=== PATIENT | female | born 1945 | race Caucasian/White ===

== ENCOUNTER 2016-12-27 08:26 | Day surgery (SDC) | payer MEDICARE ==
[~2016-12-27 08:26] MED LIST: RINGERS SOLUTION,LACTATED 1,000 ML IV PRN
--- OUTSIDE RECORDS SUMMARY | 2016-12-27 08:30 | XMS REPORT | Continuity of Care Document ---
:1945 Author Organization [facility] ([facility]) Address [place] [address] Phone [phone] Care Team Providers Name Role Phone Ale Drake Deniz Primary Care Provider [phone] Source Comments This disclosure is being made pursuant to the Care Everywhere program, applicable federal and state laws, and may not contain all informaitonavailable regarding this patient.[facility] ([facility]) Active Allergies and Adverse Reactions No Known Allergies Current Medications Prescription Sig. Disp. Refills Start Date End Date Status simvastatin (ZOCOR) 40 mg Take 40 mg by mouth Active tablet at bedtime. Once daily ESOMEPRAZOLE MAG Take 40 mg by mouth Active TRIHYDRATE (NEXIUM PO) daily. Once in morning MULTIVITS W-FE,OTHER MIN Take by mouth. Active (CENTRUM PO) Once daily Active Problems Problem Noted Date Multinodular goiter (nontoxic) 02/02/2010 Social History Tobacco Use Types Packs/Day Years Used Date Never Assessed Last Filed Vital Signs Vital Sign Reading Time Taken Blood Pressure 133/75 01/25/2011 12:56 PM CDT Pulse 69 01/25/2011 12:56 PM CDT Temperature 35.9 C (96.6 F) 01/25/2011 12:56 PM CDT Respiratory Rate - - Height 1.58 m (5' 2.21") 01/25/2011 12:56 PM CDT Weight 79.9 kg (176 lb 2.4 oz) 01/25/2011 12:56 PM CDT Body Mass Index 32.01 01/25/2011 12:56 PM CDT Oxygen Saturation - - Plan of Care Health Maintenance Due Date Last Done Comments Hepatitis B Vaccine (1 of 3 - Primary Series) 1945 Tdap Vaccine 02/21/1955 Lipid Disorder Screening 02/21/1962 Td Vaccine 02/21/1962 Mammogram 1984 Colonoscopy 02/21/1994 Zoster Vaccine 2004 Osteoporosis Screening (DXA Bone Density) 02/21/2009 Pneumococcal Vaccine (1 of 2 - PCV13) 02/21/2009 Influenza Vaccine: Seasonal (#1) 05/15/2016 Results from Last 3 Months Not on file
[2016-12-27] MEDS ORDERED: RINGERS SOLUTION,LACTATED 1,000 ML IV ONE (09:05)
[2016-12-27 10:37] VITALS: BP 126/59
--- NOTE | 2016-12-27 12:52 | OR ---
Operative Report - Dictated Report Narrative: OPERATIVE REPORT DATE OF OPERATION: 12/27/2016 PREOPERATIVE DIAGNOSIS: No recent dedicated colon studies. POSTOPERATIVE DIAGNOSIS: Diverticulosis OPERATION: Colonoscopy SURGEON: Rodger Bergman MD ANESTHESIA: LISET Irizarry CRNA INDICATIONS FOR PROCEDURE: The patient is a 71-year-old female referred by Dr. Tirado. Her last colonoscopy was in 2005. There is no family history of colon cancer. The patient is currently asymptomatic. FINDINGS: Mild diverticulosis otherwise normal colonoscopy to the cecum NARRATIVE OF PROCEDURE: The patient was identified in the holding area, and prior to the administration of anesthetic, a multidisciplinary timeout was observed. With the patient in the left lateral position and after the administration of intravenous sedation, the perineum was inspected. There was no evidence of pilonidal disease or skin breakdown. The external appearance of the anus was normal. Sphincter tone was good. The flexible fiberoptic colonoscope was inserted into the rectum which was insufflated with air. The rectal mucosa and submucosal vascular pattern appeared normal, the prep was seen to be complete. The scope was advanced through the sigmoid colon, which contained several not impacted noninflamed diverticular openings. The scope was advanced up the descending colon, and around the splenic flexure where the triangular haustral architecture of the transverse colon was seen. The scope was advanced across the transverse colon, around the hepatic flexure to the cecum, where the confluence of tenia and the ileocecal valve were identified. The mucosa at this level appeared normal. The scope was then slowly withdrawn in a circular fashion so that all aspects of colonic mucosa were inspected. The colon was normal in course and caliber. The haustral architecture appeared well preserved throughout with no evidence of external compression. The mucosa and submucosal vascular pattern appeared normal, specifically there was no gross evidence to suggest colitis or inflammatory bowel disease and no AV malformations were seen. The diverticulosis was mild in degree and confined primarily to the sigmoid colon. No polyps were encountered. The scope was gradually withdrawn to the level of the rectum. As much insufflated air as possible was removed. The scope was withdrawn from the patient and the procedure terminated. The patient tolerated the anesthetic and procedure well without complication and was transferred back to the ambulatory surgery area awake and in stable condition. The patient remained stable throughout a period of postoperative observation. She denied abdominal discomfort, was able to tolerate by mouth intake, and was up without assistance. I shared the operative findings with the patient and she was given copies of the photographs which appear in the medical record. She was discharged home with instructions not to engage in hazardous activity today , but may resume normal activity tomorrow, and advance diet as tolerated. She is to continue those medications as listed in the history and physical exam. RECOMMENDATION: Colon surveillance in 10 years depending upon findings or symptoms Reviewed and electronically signed
== END 2016-12-27 08:27 | disposition home or self-care (01) ==
LOC: AMB 08:26
PROVIDERS: ATTEND Surgery
PROC: 0DJD8ZZ Inspection of Lower Intestinal Tract, Via Natural or Artificial Opening Endoscopic (ICD-10-PCS; principal; 2016-12-27 09:25)
DX: Z12.11 Encounter for screening for malignant neoplasm of colon (principal); K57.30 Diverticulosis of large intestine without perforation or abscess without bleeding; E78.5 Hyperlipidemia, unspecified; K21.9 Gastro-esophageal reflux disease without esophagitis; Z68.32 Body mass index [BMI] 32.0-32.9, adult

== ENCOUNTER 2020-09-01 08:12 | Inpatient (IN) ==
[2020-09-01] MEDS ORDERED: ONDANSETRON HCL/PF 2 MG/ML VIAL IV ONE (08:47)
[2020-09-01] MEDS ORDERED: NORMAL SALINE 1,000 ML IV PRN ×2 (08:47→11:00)
[2020-09-01 09:10] LABS: Hematocrit 25.5 % (37.0-47.0); Hemoglobin 8.5 gm/dL (12.5-16.0); Mean Cell Volume 88.5 fl (78-100); Mean Corpuscular Hemoglobin 29.5 pg (27-31); Mean Corpuscular Hgb Conc 33.3 g/dl (32-36); Mean Platelet Volume 9.5 fl (8-12.5); NRBC# 0.1 k/mm3 (0-1); Neutrophil # 18.3 K/mm3 (1.3-6.0); Neutrophil % 90.2 % (42-75.0); Red Blood Count 2.88 M/mm3 (4.2-5.4); Red Cell Distribution Width 19.4 % (11.5-14.0); White Blood Count 20.3 K/mm3 (4.0-10.5)
[2020-09-01 09:19] LABS: Platelet Count 58 K/mm3 (150-450)
[2020-09-01 09:25] LABS: Albumin * 1.9 gm/dl (3.4-5.0); Anion Gap 14.9 mmol/L (6.8-13.8); Bilirubin, Total 1.3 mg/dL (0.0-1.1); CRP 8.5 mg/dL (0.0-0.9); Ca. Corrected For Albumin 9.5 mg/dL (8.4-10.2); Calcium * 8.1 mg/dL (7.9-10.9); Carbon Dioxide 24.4 mmol/L (24-32.6); Potassium 3.3 mmol/L (3.4-4.6); Total Protein 4.8 gm/dL (6.2-8.2)
[2020-09-01] MEDS ORDERED: cefTRIAXone SODIUM 1,000 MG/100 ML BAG IV ONE (10:05)
[2020-09-01 10:35] LABS: Urine Appearance Clear (CLEAR); Urine Bacteria 1+; Urine Bilirubin Negative (NEGATIVE); Urine Blood Negative /ul (NEGATIVE); Urine Color Yellow; Urine Ketone Negative (NEGATIVE); Urine Nitrite Negative (NEGATIVE); Urine Protein Negative (NEGATIVE); Urine RBC None Seen /hpf (0-5); Urine Urobilinogen Normal (NORMAL); Urine WBC None Seen /hpf (0-5)
--- NOTE | 2020-09-01 12:38 | ERNOTE ---
Medical Problem HPI - Narrative Date of Service: 09/01/20 - General Chief Complaint: General Assessment Time Seen by Provider: 09/01/20 08:30 Source: patient, family Exam Limitations: no limitations - Immun/Allergies/Home Medications Immunizations: IMMUNIZATION HX Immunizations Up to Date Yes History of Influenza Vaccine No Hx Pneumococcal Vaccination Yes Allergies/Adverse Reactions: Allergies simvastatin Adverse Reaction (Mild, Verified 02/24/19 13:54) MUSCLE ACHES Home Medications: HOME MEDICATIONS Multivitamins [Multivitamin Steven] 1 cap PO DAILY 12/18/16 [Last Taken Unknown] Vit C/E/Zn/Coppr/Lutein/Zeaxan [Preservision Areds 2 Softgel] 1 ea PO BID 12/18/16 [Last Taken Unknown] gtkkul-nmqpidys-azmjjrr 24,000-76,000-120,000 unit capsule,delayed rel 1 tab PO ACHS 30 Days #150 cap 08/13/18 [Last Taken Unknown] metoclopramide HCl 5 mg tablet 5 mg PO TID 30 Days #90 tab 08/13/18 [Last Taken Unknown] Ondansetron HCl [Zofran] 1 - 2 tab PO Q8H PRN #10 tab 03/12/19 [Last Taken Unknown] [place] Stairlift 0 .ROUTE .MEDSUPPLY #1 ea 10/13/19 [Last Taken Unknown] Apixaban [Eliquis] 5 mg PO DAILY 09/01/20 [Last Taken Unknown] Furosemide [Lasix] 40 mg PO DAILY 09/01/20 [Last Taken Unknown] Rivaroxaban [Xarelto] 10 mg PO DAILY 09/01/20 [Last Taken Unknown] - History of Present History Narrative: patient returns to ed with weakness and fall hit back of head no loc, 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, had refused admission previously Timing: constant Severity: moderate Modifying Factors - (Improves): Present: other - nothing Modifying Factors - (Worsens): Present: other - nothing Review of Systems - Review of Systems Constitutional: Present: See HPI, weakness, fatigue, malaise EYE: Present: no symptoms reported ENT: Present: no symptoms reported Respiratory: Present: no symptoms reported Cardiology: Present: no symptoms reported Gastrointestinal/Abdominal: Present: nausea Genitourinary: Present: no symptoms reported Musculoskeletal: Present: no symptoms reported Skin: Present: no symptoms reported Neurological: Present: no symptoms reported Endocrine: Present: no symptoms reported Hematologic/Lymphatic: Present: no symptoms reported Medical History (Last Reviewed 09/01/20 @ 08:20 by Carlota Celestin RN) History of chemotherapy (Acute) Onset Date: 07/12/18 Chemotherapy: gemcitabine/abraxane 07/12/2018 - 08/26/2018 Pancreatic cancer (Acute) Onset Date: 06/05/18 Stage: [id number], stage III at diagnosis Osteopenia (Chronic) Onset Date: Unknown Hyperlipidemia (Chronic) Onset Date: Unknown Gastroesophageal reflux (Chronic) Onset Date: Unknown Actinic keratoses (Acute) Onset Date: Unknown Ascites Onset Date: 04/28/19 Goiter Onset Date: Unknown History of CT scan Onset Date: 09/09/18 History of chemoradiation Onset Date: 09/24/18 09/24/2018 - 11/06/2018. Knee pain, left Onset Date: Unknown Rosacea Onset Date: Unknown Thyroid nodule Onset Date: [address] scan Onset Date: 06/14/18 [facility]. CT chest abdomen pelvis. 1. stable ill-defined mass in the inferior pancreatic head/uncinate process, consistent with biopsy-proven adenocarcinoma. The mass abuts and may invade the proximal third portion of duodenum, abuts and focally narrows the distal SMV, and focally abuts the mid SMA without narrowing. 2. Interval resolution of intrahepatic and extrahepatic bile duct dilation with interval biliary stenting. 3. Nonspecific portacaval and periceliac lymph nodes, stable. 4. stable moderate sized hiatal hernia. 5. no liver metastases. Hospital admission Onset Date: 01/20/19 Admitted to [facility] on 01/20/2019; post-operative wound management, pain control. Discharged home on 01/27/2019. Medicare annual wellness visit, initial Onset Date: Unknown Surgical History: Surgical History (Last Reviewed 09/01/20 @ 08:20 by Carlota Celestin RN) History of ERCP Onset Date: 03/21/19 Dr. Bob Marie, [facility]. Enteroscopy, endoscopy, choledochoscopy, and bile duct stone extraction. History of abdominal paracentesis Onset Date: 04/28/19 History of back surgery Onset Date: ~1985 History of biopsy Onset Date: 06/05/18 [facility]. History of colonoscopy Onset Date: 12/27/16 History of endoscopic retrograde cholangiopancreatography Onset Date: 10/21/18 Dr. Bob Marie, [facility]. History of whipple procedure Onset Date: 01/20/19 Family History: Family History (Last Reviewed 09/01/20 @ 08:20 by Carlota Celestin RN) Brother Kidney malignancy Father Heart disease Mother Heart disease CHF (congestive heart failure) Sister at Social History: (Last Reviewed 09/01/20 @ 08:20 by Carlota Celestin RN) Social History: detention: No Marital status: / household members: significant other current occupational status: retired Service: No Tobacco: Smoking Status: Never smoker Alcohol: alcohol intake: never Substance Use: substance use type: does not use Dietary Habits: caffeine: Yes Type: coffee Exercise: frequency: daily Physical Exam - Physical Exam General Appearance: Present: mild distress, anxious Head Exam: Present: tenderness, other - contusion to occipital region Eye Exam: Normal inspection: bilateral, PERRL: bilateral, EOMI: bilateral Ears, Nose, Throat: Present: dry mucous membranes Neck: Present: normal inspection, nontender Respiratory: Present: no respiratory distress, normal breath sounds, no accessor y muscle use, chest nontender, lungs clear Cardiovascular/Chest: Present: regular rate, rhythm, no murmur, normal peripheral pulses Gastrointestinal/Abdominal: Present: normal bowel sounds, nontender, nondistended, soft, no organomegaly Back Exam: Present: normal inspection, normal range of motion, no CVA tenderness, no vertebral tenderness Extremity Exam: Present: normal inspection, non-tender, normal range of motion, no edema Neurological Exam: Present: alert, oriented, normal mood/affect, no motor/sensory deficits Skin Exam: Present: normal color, warm/dry Lymphatic Exam: Present: no adenopathy Progress - Date and Time Seen: Date and Time: 09/01/20 12:35 patient improved, case discussed with dr tirado acceoted for adsmission - Results and Orders Patient's Lab Results:: I have reviewed the patient's lab results. - Vital Signs Patient's Vital Signs:: I have reviewed the patient's vital signs. Vital Signs: Vital Signs 09/01/20 08:12 09/01/20 08:20 09/01/20 10:30 Temperature 35.8 C L 35.8 C L Pulse Rate 113 H 113 H 97 Respiratory Rate 24 H 24 H 22 H Blood Pressure 92/37 92/37 107/48 O2 Sat by Pulse Oximetry 100 100 100 09/01/20 10:45 09/01/20 10:46 Temperature Pulse Rate 99 100 Respiratory Rate 22 H Blood Pressure 108/50 O2 Sat by Pulse Oximetry 100 - X-Ray X-Ray #1 X-Ray: chest Interpretation: Discd w/ radiologist - mild left pleural effusion - CT/Ultrasound CT/Ultrasound Narrative: ct head no acte intracrainal process - Progress/Reassessment Chief Complaint: General Assessment Progress:: Improved - Transfer of Care Expected Disposition: Admit Plan - Plan Plan: to admit to hospital Departure Clinical Impression: Dehydration, Pancreatic cancer, Sepsis - Departure Disposition: Short Term Hospital Inpatient Condition: Serious Referrals: Andrezj Tirado DO [Primary Care Provider] -
[2020-09-01] MEDS: NORMAL SALINE 1,000 ML IV PRN ×2 (12:50→18:46)
[2020-09-01] MEDS ORDERED: NORMAL SALINE 1,000 ML IV ONE (17:34)
[2020-09-02] MEDS: NORMAL SALINE 1,000 ML IV PRN ×3 (02:50→19:30)
[2020-09-02 06:15] LABS: Mean Cell Volume 91.2 fl (78-100); Mean Corpuscular Hemoglobin 30.3 pg (27-31); Mean Corpuscular Hgb Conc 33.2 g/dl (32-36); Mean Platelet Volume 10.7 fl (8-12.5); NRBC# 0.1 k/mm3 (0-1); Neutrophil # 13.7 K/mm3 (1.3-6.0); Neutrophil % 86.7 % (42-75.0); Platelet Count 52 K/mm3 (150-450); Red Blood Count 2.51 M/mm3 (4.2-5.4); Red Cell Distribution Width 20.8 % (11.5-14.0); White Blood Count 15.8 K/mm3 (4.0-10.5)
[2020-09-02 06:21] LABS: Hematocrit 22.9 % (37.0-47.0); Hemoglobin 7.6 gm/dL (12.5-16.0)
[2020-09-02 06:27] LABS: Albumin * 1.6 gm/dl (3.4-5.0); Anion Gap 11.6 mmol/L (6.8-13.8); BUN/Creatinine Ratio 50.8 (9.0-21.6); Bilirubin, Total 1.1 mg/dL (0.0-1.1); Ca. Corrected For Albumin 9.1 mg/dL (8.4-10.2); Calcium * 7.5 mg/dL (7.9-10.9); Carbon Dioxide 22.7 mmol/L (24-32.6); Potassium 3.3 mmol/L (3.4-4.6); Total Protein 4.2 gm/dL (6.2-8.2)
[2020-09-02] MEDS ORDERED: ONDANSETRON HCL 4 MG TABLET PO PRN (07:39)
--- NOTE | 2020-09-02 07:41 | HP ---
Chief Complaint - Chief Complaint Date of Service: 09/01/20 Time of Service: 16:00 Chief Complaint: Fatigue, weakness History of Present Illness: Yana is a 75 yo female with pancreatic cancer who presented to the [facility] ER due to worsening fatigue and weakness. She reports fatigue has been worse over the last week. She otherwise denies any focal complaints. No fever, chills, nausea, vomiting, cough, shortness of breath, skin changes, or bowel changes. She reports she always has poor appetite but does not think this is different than her normal. Medical History (Last Updated 09/01/20 @ 14:03 by Mohamud Rao RN) History of chemotherapy (Acute) Onset Date: 07/12/18 Chemotherapy: gemcitabine/abraxane 07/12/2018 - 08/26/2018 Pancreatic cancer (Acute) Onset Date: 06/05/18 Stage: [id number], stage III at diagnosis Mets with liver/Lung Osteopenia (Chronic) Onset Date: Unknown Gastroesophageal reflux (Chronic) Onset Date: Unknown Actinic keratoses (Acute) Onset Date: Unknown Ascites Onset Date: 04/28/19 Goiter Onset Date: Unknown History of CT scan Onset Date: 09/09/18 History of chemoradiation Onset Date: 09/24/18 09/24/2018 - 11/06/2018. Knee pain, left Onset Date: Unknown Rosacea Onset Date: Unknown Thyroid nodule Onset Date: [address] scan Onset Date: 06/14/18 [facility]. CT chest abdomen pelvis. 1. stable ill-defined mass in the inferior pancreatic head/uncinate process, consistent with biopsy-proven adenocarcinoma. The mass abuts and may invade the proximal third portion of duodenum, abuts and focally narrows the distal SMV, and focally abuts the mid SMA without narrowing. 2. Interval resolution of intrahepatic and extrahepatic bile duct dilation with interval biliary stenting. 3. Nonspecific portacaval and periceliac lymph nodes, stable. 4. stable moderate sized hiatal hernia. 5. no liver metastases. Hospital admission Onset Date: 01/20/19 Admitted to [facility] on 01/20/2019; post-operative wound management, pain control. Discharged home on 01/27/2019. Medicare annual wellness visit, initial Onset Date: Unknown Surgical History: Surgical History (Last Reviewed 09/01/20 @ 14:04 by Mohamud Rao RN) History of ERCP Onset Date: 03/21/19 Dr. Bob Marie, [facility]. Enteroscopy, endoscopy, choledochoscopy, and bile duct stone extraction. History of abdominal paracentesis Onset Date: 04/28/19 History of back surgery Onset Date: ~1984 History of biopsy Onset Date: 06/05/18 [facility]. pancreas History of colonoscopy Onset Date: 12/27/16 History of endoscopic retrograde cholangiopancreatography Onset Date: 10/21/18 Dr. Bob Marie, [facility]. History of whipple procedure Onset Date: 01/20/19 Family History: Family History (Last Reviewed 09/01/20 @ 14:05 by Mohamud Rao, RN) Brother Kidney malignancy Father Heart disease Mother Heart disease CHF (congestive heart failure) Sister at Social History: (Last Reviewed 09/01/20 @ 14:05 by Mohamud Rao, RN) Social History: intermediate: No Marital status: / household members: significant other current occupational status: retired Service: No Tobacco: Smoking Status: Never smoker Alcohol: alcohol intake: never Substance Use: substance use type: does not use Dietary Habits: caffeine: Yes Type: coffee Exercise: frequency: daily Review Of Systems (GEN) - Review of Systems Generalized/Overall Review: Present: Weakness, Fatigue. Absent: Chills, Fever EENTM: Present: No Symptoms Reported Respiratory: Absent: Cough, Shortness of Breath Cardiac: Absent: Chest Pain, Edema Abdominal: Absent: Nausea, Vomiting Genitourinary: Absent: Burning, Frequency Musculoskeletal: Present: No Symptoms Reported Neurological: Present: Weakness Skin: Present: No Symptoms Reported Endocrine: Present: No Symptoms Reported Immunizations: IMMUNIZATION HX Immunizations Up to Date Yes History of Influenza Vaccine No Hx Pneumococcal Vaccination Yes Allergies/Adverse Reactions: Allergies Allergy/AdvReac Type Severity Reaction Status Date / Time simvastatin AdvReac Mild MUSCLE Verified 09/01/20 14:05 ACHES Home Medications: HOME MEDICATIONS Multivitamins [Multivitamin Steven] 1 cap PO DAILY 12/18/16 [Last Taken Unknown] Vit C/E/Zn/Coppr/Lutein/Zeaxan [Preservision Areds 2 Softgel] 1 ea PO BID 12/18/16 [Last Taken Unknown] [id number] 24,000-76,000-120,000 unit capsule,delayed rel 1 tab PO AC 30 Days #150 cap 08/13/18 [Last Taken Unknown] metoclopramide HCl 5 mg tablet 5 mg PO TID PRN 30 Days #90 tab 08/13/18 [Last Taken Unknown] [place] St[employer]lift 0 .ROUTE .MEDSUPPLY #1 ea 10/13/19 [Last Taken Unknown] Furosemide [Lasix] 40 mg PO DAILY PRN 09/01/20 [Last Taken Unknown] Ondansetron HCl [Zofran] 1 - 2 tab PO Q6H PRN 09/01/20 [Last Taken Unknown] Rivaroxaban [Xarelto] 10 mg PO DAILY 09/01/20 [Last Taken Unknown] Exam - Exam Vital Signs: Vital Signs - Last Taken Selected Entries 09/01/20 08:12 Temperature 35.8 C L Pulse Rate 113 H Respiratory Rate 24 H Blood Pressure 92/37 O2 Sat by Pulse Oximetry 100 Oxygen Delivery Method Room Air Constitutional: Present: Alert, Oriented x3, Cooperative ENT Exam: Present: hearing grossly normal Eye Exam: bilateral eye: normal inspection Respiratory: Present: lungs clear, normal breath sounds Cardiovascular/Chest: Present: regular rate, rhythm, no murmur Peripheral Pulses: radial (R): 2+, radial (L): 2+ Abdomen: Present: Normal bowel sounds, soft, nontender, nondistended Extremity: Present: lower extremity edema - 1+ Skin Exam: Present: normal color, warm/dry, no cyanosis Appearance: Present: appropriate appearance, appropriate insight Eye contact: Present: cooperative, good eye contact, normal speech Thoughts: Present: normal thought pattern, no apparent hallucination Diagnostic Studies: Abnormal Lab Results 09/01/20 09/01/20 09/01/20 Range/Units 09:00 09:00 09:00 WBC 20.3 H D (4.0-10.5) K/mm3 RBC 2.88 L (4.2-5.4) M/mm3 Hgb 8.5 L (12.5-16.0) gm/dL Hct 25.5 L (37.0-47.0) % RDW 19.4 H (11.5-14.0) % Plt Count 58 L (150-450) K/mm3 Immature Gran % (Auto) 1.50 H (0.001-0.429) % Immature Gran # (Auto) 0.31 H (0.000-0.0310) K/mm3 Neutrophils % 90.2 H (42-75.0) % Lymphocytes % 2.0 L (20-51) % Neutrophils # 18.3 H (1.3-6.0) K/mm3 Lymphocytes # 0.41 L (1.5-3.5) k/mm3 Monocytes # 1.2 H (0.0-1.0) k/mm3 Sodium 130 L (132-142) mmol/L Potassium 3.3 L (3.4-4.6) mmol/L Chloride 94 L (97-106) mmol/L Carbon Dioxide (24-32.6) mmol/L Anion Gap 14.9 H (6.8-13.8) mmol/L BUN 76 H (3-23) mg/dL Creatinine 1.49 H (0.4-1.4) mg/dL Est GFR (Non-Af Amer) 36 L D (60-130) mL/min BUN/Creatinine Ratio 51.0 H (9.0-21.6) Random Glucose 170 H (70-110) mg/dL Lactic Acid, Venous 4.3 H* (0.4-2.0) mmol/L Calcium (7.9-10.9) mg/dL Total Bilirubin 1.3 H (0.0-1.1) mg/dL Alkaline Phosphatase 332 H (50-170) U/L C-Reactive Prot, Quant 8.5 H (0.0-0.9) mg/dL Total Protein 4.8 L (6.2-8.2) gm/dL Albumin 1.9 L (3.4-5.0) gm/dl Lipase 8 L (73-393) U/L Procalcitonin (0.05-0.50) ng/mL Urine Bacteria (NONE) 09/01/20 09/01/20 09/01/20 Range/Units 09:00 10:10 11:38 WBC (4.0-10.5) K/mm3 RBC (4.2-5.4) M/mm3 Hgb (12.5-16.0) gm/dL Hct (37.0-47.0) % RDW (11.5-14.0) % Plt Count (150-450) K/mm3 Immature Gran % (Auto) (0.001-0.429) % Immature Gran # (Auto) (0.000-0.0310) K/mm3 Neutrophils % (42-75.0) % Lymphocytes % (20-51) % Neutrophils # (1.3-6.0) K/mm3 Lymphocytes # (1.5-3.5) k/mm3 Monocytes # (0.0-1.0) k/mm3 Sodium (132-142) mmol/L Potassium (3.4-4.6) mmol/L Chloride (97-106) mmol/L Carbon Dioxide (24-32.6) mmol/L Anion Gap (6.8-13.8) mmol/L BUN (3-23) mg/dL Creatinine (0.4-1.4) mg/dL Est GFR (Non-Af Amer) (60-130) mL/min BUN/Creatinine Ratio (9.0-21.6) Random Glucose (70-110) mg/dL Lactic Acid, Venous 4.0 H* (0.4-2.0) mmol/L Calcium (7.9-10.9) mg/dL Total Bilirubin (0.0-1.1) mg/dL Alkaline Phosphatase (50-170) U/L C-Reactive Prot, Quant (0.0-0.9) mg/dL Total Protein (6.2-8.2) gm/dL Albumin (3.4-5.0) gm/dl Lipase (73-393) U/L Procalcitonin 4.31 H (0.05-0.50) ng/mL Urine Bacteria 1+ H (NONE) 09/02/20 09/02/20 Range/Units 06:12 06:12 WBC 15.8 H D (4.0-10.5) K/mm3 RBC 2.51 L (4.2-5.4) M/mm3 Hgb 7.6 L* (12.5-16.0) gm/dL Hct 22.9 L* (37.0-47.0) % RDW 20.8 H (11.5-14.0) % Plt Count 52 L (150-450) K/mm3 Immature Gran % (Auto) 1.30 H (0.001-0.429) % Immature Gran # (Auto) 0.21 H (0.000-0.0310) K/mm3 Neutrophils % 86.7 H (42-75.0) % Lymphocytes % 3.4 L (20-51) % Neutrophils # 13.7 H (1.3-6.0) K/mm3 Lymphocytes # 0.53 L (1.5-3.5) k/mm3 Monocytes # 1.3 H (0.0-1.0) k/mm3 Sodium (132-142) mmol/L Potassium 3.3 L (3.4-4.6) mmol/L Chloride (97-106) mmol/L Carbon Dioxide 22.7 L (24-32.6) mmol/L Anion Gap (6.8-13.8) mmol/L BUN 64 H (3-23) mg/dL Creatinine (0.4-1.4) mg/dL Est GFR (Non-Af Amer) 44 L D (60-130) mL/min BUN/Creatinine Ratio 50.8 H (9.0-21.6) Random Glucose 137 H (70-110) mg/dL Lactic Acid, Venous (0.4-2.0) mmol/L Calcium 7.5 L (7.9-10.9) mg/dL Total Bilirubin (0.0-1.1) mg/dL Alkaline Phosphatase 269 H (50-170) U/L C-Reactive Prot, Quant (0.0-0.9) mg/dL Total Protein 4.2 L (6.2-8.2) gm/dL Albumin 1.6 L (3.4-5.0) gm/dl Lipase (73-393) U/L Procalcitonin (0.05-0.50) ng/mL Urine Bacteria (NONE) Laboratory Results WBC 15.8 K/mm3 (4.0-10.5) H D 09/02/20 06:12 RBC 2.51 M/mm3 (4.2-5.4) L 09/02/20 06:12 Hgb 7.6 gm/dL (12.5-16.0) L* 09/02/20 06:12 Hct 22.9 % (37.0-47.0) L* 09/02/20 06:12 MCV 91.2 fl (78-100) 09/02/20 06:12 MCH 30.3 pg (27-31) 09/02/20 06:12 MCHC 33.2 g/dl (32-36) 09/02/20 06:12 RDW 20.8 % (11.5-14.0) H 09/02/20 06:12 Plt Count 52 K/mm3 (150-450) L 09/02/20 06:12 MPV 10.7 fl (8-12.5) 09/02/20 06:12 Immature Gran % (Auto) 1.30 % (0.001-0.429) H 09/02/20 06:12 Immature Gran # (Auto) 0.21 K/mm3 (0.000-0.0310) H 09/02/20 06:12 Neutrophils % 86.7 % (42-75.0) H 09/02/20 06:12 Lymphocytes % 3.4 % (20-51) L 09/02/20 06:12 Monocytes % 8.4 % (0.0-9) 09/02/20 06:12 Eosinophils % 0.1 % (0.0-3.0) 09/02/20 06:12 Basophils % 0.1 % (0.0-1.0) 09/02/20 06:12 Nucleated RBC % 0.1 k/mm3 (0-1) 09/02/20 06:12 Neutrophils # 13.7 K/mm3 (1.3-6.0) H 09/02/20 06:12 Lymphocytes # 0.53 k/mm3 (1.5-3.5) L 09/02/20 06:12 Monocytes # 1.3 k/mm3 (0.0-1.0) H 09/02/20 06:12 Eosinophils # 0.0 k/mm3 (0.0-0.7) 09/02/20 06:12 Absolute Basophils 0.0 k/mm3 (0.0-0.1) 09/02/20 06:12 Sodium 134 mmol/L (132-142) 09/02/20 06:12 Plasma Sodium 135 mmol/L (130-142) 09/02/20 06:12 Potassium 3.3 mmol/L (3.4-4.6) L 09/02/20 06:12 Chloride 103 mmol/L (97-106) 09/02/20 06:12 Carbon Dioxide 22.7 mmol/L (24-32.6) L 09/02/20 06:12 Anion Gap 11.6 mmol/L (6.8-13.8) 09/02/20 06:12 BUN 64 mg/dL (3-23) H 09/02/20 06:12 Creatinine 1.26 mg/dL (0.4-1.4) 09/02/20 06:12 Est GFR (Non-Af Amer) 44 mL/min (60-130) L D 09/02/20 06:12 BUN/Creatinine Ratio 50.8 (9.0-21.6) H 09/02/20 06:12 Random Glucose 137 mg/dL (70-110) H 09/02/20 06:12 Lactic Acid, Venous 4.0 mmol/L (0.4-2.0) H* 09/01/20 11:38 Calcium 7.5 mg/dL (7.9-10.9) L 09/02/20 06:12 Calcium Adj for Albumin 9.1 mg/dL (8.4-10.2) 09/02/20 06:12 Total Bilirubin 1.1 mg/dL (0.0-1.1) 09/02/20 06:12 AST 38 U/L (0-48) 09/02/20 06:12 ALT 56 U/L (19-67) 09/02/20 06:12 Alkaline Phosphatase 269 U/L (50-170) H 09/02/20 06:12 C-Reactive Prot, Quant 8.5 mg/dL (0.0-0.9) H 09/01/20 09:00 Total Protein 4.2 gm/dL (6.2-8.2) L 09/02/20 06:12 Albumin 1.6 gm/dl (3.4-5.0) L 09/02/20 06:12 Amylase 43 U/L (25-115) 09/01/20 09:00 Lipase 8 U/L (73-393) L 09/01/20 09:00 Procalcitonin 4.31 ng/mL (0.05-0.50) H 09/01/20 09:00 Urine Color Yellow 09/01/20 10:10 Urine Appearance Clear (CLEAR) 09/01/20 10:10 Urine pH 6.0 pH (5.0-7.0) 09/01/20 10:10 Ur Specific [place] 1.010 SP.GR. (1.005-1.010) 09/01/20 10:10 Urine Protein Negative mg/dL (NEGATIVE) 09/01/20 10:10 Urine Glucose (UA) Negative mg/dL (NEGATIVE) 09/01/20 10:10 Urine Ketones Negative mg/dL (NEGATIVE) 09/01/20 10:10 Urine Blood Negative /ul (NEGATIVE) 09/01/20 10:10 Urine Nitrate Negative (NEGATIVE) 09/01/20 10:10 Urine Bilirubin Negative mg/dl (NEGATIVE) 09/01/20 10:10 Urine Urobilinogen Normal EU/dl (NORMAL) 09/01/20 10:10 Ur Leukocyte Esterase Negative /ul (NEGATIVE) 09/01/20 10:10 Urine RBC None seen /hpf (0-5) 09/01/20 10:10 Urine WBC None seen /hpf (0-5) 09/01/20 10:10 Ur Epithelial Cells 0-5 /hpf (0-5) 09/01/20 10:10 Urine Bacteria 1+ (NONE) H 09/01/20 10:10 Urine Culture Comments Culture to follow 09/01/20 10:10 SARS-CoV-2 (PCR) Not detected (NotDetected) 09/01/20 12:02 Assessment/Plan - Narrative Narrative: Yana is a 75 yo female with pancreatic cancer and worsening fatigue. She is hypotensive and has lactic acidosis. There is no obvious source of infection at this time. Urine culture is pending, COVID negative, blood cultures pending, no respiratory symptom, or other focal symptoms of infection. She was given IV fluids in the ER due to hypotension, blood pressure is improved, will continue fluids and give additional boluses as needed. She does have SIRS with elevated lactate, but at this time I do not have an infectious source. Will still give appropriate fluids as if it is sepsis and she was given a dose of Rocephin in the ER. Will monitor for signs of infection and decide if antibiotics will need to be continued. Dehydration appears to be moderate due to her hypotension and with her concern for possible sepsis will admit to acute inpatient status as I believe it will take >2 midnights to treat with fluid and make sure she is taking adequate fluid to prevent a relapse and also further monitor for infection and treat as needed. - Assessment/Plan (1) Dehydration, moderate Problem: Acute (2) Hypotension Problem: Acute Qualifiers: Hypotension type: unspecified hypotension type Qualified Code(s): I95.9 - Hypotension, unspecified (3) Sepsis Problem: Suspected Qualifiers: Sepsis type: sepsis due to unspecified organism
[2020-09-02] MEDS ORDERED: MULTIVITAMINS 1 CAP CAPSULE PO SCH (09:00)
[2020-09-02] MEDS ORDERED: RIVAROXABAN 20 MG TABLET PO SCH (09:00)
[2020-09-02] MEDS ORDERED: XARELTO 10MG PO SCH (09:00)
[2020-09-02] MEDS: METOCLOPRAMIDE HCL 5 MG TABLET PO PRN ×2 (11:45→17:50)
--- NOTE | 2020-09-02 14:37 | CONS ---
HPI - General Date of Service: 09/02/20 Source: patient, RN notes reviewed - History of Present Illness Initial Comments: Patient is a 75-year-old female, recently admitted to the hospital after a fall at home. She was noted to have worsening fatigue, weakness, dehydration hypotension and possible sepsis. She was also noted to have an ulcer to the sacral region. The patient states the ulcer has been present more than 2 weeks, however cannot give a definitive date. She denies any pain associated with the area. She states she has had no treatment for the wound. The patient has pancreatic cancer, and states she is immobile most of the day. She sleeps in her chair at home. She states she is under the care of Oncology regarding pancreatic cancer, and is currently undergoing chemo therapy. Timing/Duration: unsure Allergies/Adverse Reactions: Allergies simvastatin Adverse Reaction (Mild, Verified 09/01/20 14:05) MUSCLE ACHES Home Medications: Home Medications Medication Instructions Recorded Last Taken Multivitamins [Multivitamin Steven] 1 cap PO DAILY 12/18/16 Unknown Vit C/E/Zn/Coppr/Lutein/Zeaxan 1 ea PO BID 12/18/16 Unknown [Preservision Areds 2 Softgel] [id number] 1 tab PO AC 30 Days #150 cap 08/13/18 Unknown 24,000-76,000-120,000 unit capsule,delayed rel metoclopramide HCl 5 mg tablet 5 mg PO TID PRN 30 Days #90 tab 08/13/18 Unknown [place] Stairlift 0 .ROUTE .MEDSUPPLY #1 ea 10/13/19 Unknown Furosemide [Lasix] 40 mg PO DAILY PRN 09/01/20 Unknown Ondansetron HCl [Zofran] 1 - 2 tab PO Q6H PRN 09/01/20 Unknown Rivaroxaban [Xarelto] 10 mg PO DAILY 09/01/20 Unknown Procedures Inspection of Lower Intestinal Tract, Via Natural or Artificial Opening Endoscopic (12/27/16) Medications - Medications Current Medications: Current Medications Sodium Chloride (Sodium Chloride 0.9%) 1,000 mls @ 126 mls/hr IV .Q7H57M PRN PRN Reason: HYDRATION Stop: 10/01/20 12:54 Last Admin: 09/02/20 10:40 Dose: 126 mls/hr Documented by: Ceftriaxone Sodium 1,000 mg/ (Dextrose/Water) 100 mls @ 200 mls/hr IV Q24H [facility]; Protocol Stop: 10/02/20 12:01 Last Infusion: 09/02/20 12:15 Dose: Infused Documented by: Metoclopramide HCl (Metoclopramide Hcl 5 Mg Tablet) 5 mg PO TID PRN PRN Reason: NAUSEA/APPETITE Stop: 10/02/20 07:40 Last Admin: 09/02/20 11:45 Dose: 5 mg Documented by: Multivitamins/Folic Acid (Multivitamins 1 Cap Capsule) 1 cap PO DAILY [facility] Stop: 10/02/20 09:01 Last Admin: 09/02/20 08:25 Dose: Not Given Documented by: Vini Thomson 24,000 (Units Capsule) 1 tab PO AC [facility] Stop: 10/02/20 11:01 Last Admin: 09/02/20 10:38 Dose: 1 tab Documented by: Xarelto 10mg 1 dose PO DAILY [facility] Stop: 10/02/20 09:01 Last Admin: 09/02/20 08:25 Dose: 1 dose Documented by: Ondansetron HCl (Ondansetron Hcl 4 Mg Tablet) 4 mg PO Q6H PRN PRN Reason: Nausea Stop: 10/02/20 07:40 Last Admin: 09/02/20 08:25 Dose: 4 mg Documented by: Review of Systems - Review of Systems Generalized/Overall Review: Present: Weakness. Absent: Fever EENTM: Absent: Nose Congestion Respiratory: Present: Shortness of Breath. Absent: Cough Cardiac: Absent: Chest Pain, Edema Abdominal: Present: Nausea, Vomiting Musculoskeletal: Absent: Joint Pain Neurological: Absent: Headache Skin: Present: Lesions Physical Examination - Exam Vital Signs: Vital Signs - Last Taken Temp 36.4 C 09/02/20 09:57 Pulse 103 H 09/02/20 10:59 Resp 19 09/02/20 09:57 BP 115/54 09/02/20 09:57 Pulse Ox 99 09/02/20 09:57 O2 Oxygen Delivery Method Room Air Constitutional: Present: Alert, Cooperative, No distress ENT Exam: Present: hearing grossly normal Respiratory: Present: no respiratory distress Skin Exam: Present: warm/dry, other - Patient has an open area on the sacrum measuring approximately 2.3 cm x 1.8 cm x 0.1 cm. Small amount of serous drainage. Large amount of red granulation. Minimal necrosis. No erythema or induration surrounding the ulcer. No bone or tendon is visible. Eye contact: Present: cooperative, good eye contact, normal speech - Results and Findings: Lab/Microbiology results last 24 hrs: Abnormal/Pending Laboratory Last 24 HRS 09/02/20 09/02/20 06:12 06:12 WBC 15.8 H D RBC 2.51 L Hgb 7.6 L* Hct 22.9 L* RDW 20.8 H Plt Count 52 L Immature Gran % (Auto) 1.30 H Immature Gran # (Auto) 0.21 H Neutrophils % 86.7 H Lymphocytes % 3.4 L Neutrophils # 13.7 H Lymphocytes # 0.53 L Monocytes # 1.3 H Potassium 3.3 L Carbon Dioxide 22.7 L BUN 64 H Est GFR (Non-Af Amer) 44 L D BUN/Creatinine Ratio 50.8 H Random Glucose 137 H Calcium 7.5 L Alkaline Phosphatase 269 H Total Protein 4.2 L Albumin 1.6 L Culture 09/01/20 09:00 Blood Culture - Preliminary Blood NO GROWTH 24 HOURS 09/01/20 10:10 Urine Culture - Preliminary Urine,Catheterized No Growth 09/01/20 09:45 Blood Culture - Preliminary Blood Gram Negative Bacilli - Assessments/Findings (1) Ulcer of sacral region, stage 3 Diagnosis(s): The ulcer has excellent granulation tissue and minimal drainage. Would recommend using [place], cover with gauze and secured with medipore tape. This dressing will be changed every 3 days, and as needed. Wash the area with soap and water at dressing changes. We may have to modify the dressing if the patient has excessive bowel movements. There are no signs or symptoms of infection associated with this wound. Recommend continuing with the excellent offloading. Problem: Acute
--- NOTE | 2020-09-02 15:13 | CONS ---
HPI - General Date of Service: 09/02/20 Source: patient, RN/MD, RN notes reviewed, old records Exam Limitations: no limitations - History of Present Illness Timing/Duration: unsure Allergies/Adverse Reactions: Allergies simvastatin Adverse Reaction (Mild, Verified 09/01/20 14:05) MUSCLE ACHES Home Medications: Home Medications Medication Instructions Recorded Last Taken Multivitamins [Multivitamin Steven] 1 cap PO DAILY 12/18/16 Unknown Vit C/E/Zn/Coppr/Lutein/Zeaxan 1 ea PO BID 12/18/16 Unknown [Preservision Areds 2 Softgel] [id number] 1 tab PO AC 30 Days #150 cap 08/13/18 Unknown 24,000-76,000-120,000 unit capsule,delayed rel metoclopramide HCl 5 mg tablet 5 mg PO TID PRN 30 Days #90 tab 08/13/18 Unknown [place] Stairlift 0 .ROUTE .MEDSUPPLY #1 ea 10/13/19 Unknown Furosemide [Lasix] 40 mg PO DAILY PRN 09/01/20 Unknown Ondansetron HCl [Zofran] 1 - 2 tab PO Q6H PRN 09/01/20 Unknown Rivaroxaban [Xarelto] 10 mg PO DAILY 09/01/20 Unknown Procedures Inspection of Lower Intestinal Tract, Via Natural or Artificial Opening Endoscopic (12/27/16) Medications - Medications Current Medications: Current Medications Sodium Chloride (Sodium Chloride 0.9%) 1,000 mls @ 126 mls/hr IV .Q7H57M PRN PRN Reason: HYDRATION Stop: 10/01/20 12:54 Last Admin: 09/02/20 10:40 Dose: 126 mls/hr Documented by: Ceftriaxone Sodium 1,000 mg/ (Dextrose/Water) 100 mls @ 200 mls/hr IV Q24H [facility]; Protocol Stop: 10/02/20 12:01 Last Infusion: 09/02/20 12:15 Dose: Infused Documented by: Metoclopramide HCl (Metoclopramide Hcl 5 Mg Tablet) 5 mg PO TID PRN PRN Reason: NAUSEA/APPETITE Stop: 10/02/20 07:40 Last Admin: 09/02/20 11:45 Dose: 5 mg Documented by: Multivitamins/Folic Acid (Multivitamins 1 Cap Capsule) 1 cap PO DAILY [facility] Stop: 10/02/20 09:01 Last Admin: 09/02/20 08:25 Dose: Not Given Documented by: Vini Thomson 24,000 (Units Capsule) 1 tab PO AC [facility] Stop: 10/02/20 11:01 Last Admin: 09/02/20 10:38 Dose: 1 tab Documented by: Xarelto 10mg 1 dose PO DAILY [facility] Stop: 10/02/20 09:01 Last Admin: 09/02/20 08:25 Dose: 1 dose Documented by: Ondansetron HCl (Ondansetron Hcl 4 Mg Tablet) 4 mg PO Q6H PRN PRN Reason: Nausea Stop: 10/02/20 07:40 Last Admin: 09/02/20 08:25 Dose: 4 mg Documented by: Review of Systems - Review of Systems Generalized/Overall Review: Present: Weakness, Malaise, Weight loss. Absent: Chills, Fever EENTM: Present: No Symptoms Reported Respiratory: Absent: Cough Cardiac: Absent: Chest Pain Abdominal: Present: Other Genitourinary: Present: No Symptoms Reported Physical Examination - Exam Vital Signs: Vital Signs - Last Taken Temp 36.4 C 09/02/20 09:57 Pulse 103 H 09/02/20 10:59 Resp 19 09/02/20 09:57 BP 115/54 09/02/20 09:57 Pulse Ox 99 09/02/20 09:57 O2 Oxygen Delivery Method Room Air Constitutional: Present: Alert, Oriented x3, Cooperative, Other ENT Exam: Present: other Cardiovascular/Chest: Present: other - Buried infusion port right subclavian, no erythema Skin Exam: Present: other - decubitus ulcer sacrum, clean granulation, no collections - Results and Findings: Lab/Microbiology results last 24 hrs: Abnormal/Pending Laboratory Last 24 HRS 09/02/20 09/02/20 06:12 06:12 WBC 15.8 H D RBC 2.51 L Hgb 7.6 L* Hct 22.9 L* RDW 20.8 H Plt Count 52 L Immature Gran % (Auto) 1.30 H Immature Gran # (Auto) 0.21 H Neutrophils % 86.7 H Lymphocytes % 3.4 L Neutrophils # 13.7 H Lymphocytes # 0.53 L Monocytes # 1.3 H Potassium 3.3 L Carbon Dioxide 22.7 L BUN 64 H Est GFR (Non-Af Amer) 44 L D BUN/Creatinine Ratio 50.8 H Random Glucose 137 H Calcium 7.5 L Alkaline Phosphatase 269 H Total Protein 4.2 L Albumin 1.6 L Culture 09/01/20 09:00 Blood Culture - Preliminary Blood NO GROWTH 24 HOURS 09/01/20 10:10 Urine Culture - Preliminary Urine,Catheterized No Growth 09/01/20 09:45 Blood Culture - Preliminary Blood Gram Negative Bacilli - Assessments/Findings (1) Sepsis Diagnosis(s): One blood culture is growing gram negative bacteria. Urine shows only 1+ bacteria and C&S pending. The sacral ulcer does not appear infected. Discussed port as a possible source. Not currently used for chemo and could be removed. Discussed this with the patient and she has given informed consent for port removal. Problem: Suspected Qualifiers: Sepsis type: sepsis due to unspecified organism
--- NOTE | 2020-09-02 23:45 | PN ---
Subjective - Date and Time Seen Date: 09/02/20 Time: 11:00 Subjective Narrative: Yana reports nausea after breakfast. Appetite is poor. No fever, chills, cough, or shortness of breath. One blood culture growing gram neg lori. Urine cx negative. Called to update her oncology but Dr. Pratt is out of town. She has a port in place but oncology reports she has not been using it and is on oral chemo. Nursing reports sacral decubitus ulcer. Objective - Vitals Vitals: Last Vital Signs Temp 36.6 C 09/02/20 22:15 Pulse 107 H 09/02/20 22:15 Resp 16 09/02/20 22:15 BP 108/54 09/02/20 22:15 Pulse Ox 97 09/02/20 22:15 - Abnormal Lab Findings Abnormal Lab Findings: Abnormal Lab Results 09/02/20 09/02/20 Range/Units 06:12 06:12 WBC 15.8 H D (4.0-10.5) K/mm3 RBC 2.51 L (4.2-5.4) M/mm3 Hgb 7.6 L* (12.5-16.0) gm/dL Hct 22.9 L* (37.0-47.0) % RDW 20.8 H (11.5-14.0) % Plt Count 52 L (150-450) K/mm3 Immature Gran % (Auto) 1.30 H (0.001-0.429) % Immature Gran # (Auto) 0.21 H (0.000-0.0310) K/mm3 Neutrophils % 86.7 H (42-75.0) % Lymphocytes % 3.4 L (20-51) % Neutrophils # 13.7 H (1.3-6.0) K/mm3 Lymphocytes # 0.53 L (1.5-3.5) k/mm3 Monocytes # 1.3 H (0.0-1.0) k/mm3 Potassium 3.3 L (3.4-4.6) mmol/L Carbon Dioxide 22.7 L (24-32.6) mmol/L BUN 64 H (3-23) mg/dL Est GFR (Non-Af Amer) 44 L D (60-130) mL/min BUN/Creatinine Ratio 50.8 H (9.0-21.6) Random Glucose 137 H (70-110) mg/dL Calcium 7.5 L (7.9-10.9) mg/dL Alkaline Phosphatase 269 H (50-170) U/L Total Protein 4.2 L (6.2-8.2) gm/dL Albumin 1.6 L (3.4-5.0) gm/dl - Exam Constitutional: Present: Alert, Oriented x3, Cooperative Respiratory: Present: normal breath sounds, no respiratory distress Cardiovascular/Chest: Present: regular rate, rhythm, no murmur Abdomen: Present: Normal bowel sounds, soft, nontender, nondistended, no rebound tenderness Appearance: Present: appropriate appearance, appropriate insight Eye contact: Present: cooperative, good eye contact, normal speech Assessment/Plan Plan Narrative: 1) Possible Septic Shock - Blood pressure improved with fluids. Currently on rocephin, will continue. One blood culture growing gram negative lori. Urine cx no growth. Sacral wound could be possible source. Central port could be a source of infection. Hx of pancreatic cancer, biliary source of infection could be possible. Unclear etiology as clinically there is not a strong factor to suspect one of these over another. Will consult general surgery to discuss removal of port due to bacteremia. Will consult wound for sacral decub. Discussed hospice vs continued treatment with Yana who would like to proceed with treatment. I called and updated her oncology department, Dr. Pratt was out of town. She has not been using her port lately in their clinic as she is currently on oral chemo. I do not know if the port is the source of the infection but suspect that regardless of the source that it could now be contaminated. There is only one blood culture growing gram negative lori, but considering her lactate, symptoms, hypotension, and WBC I suspect that the bacteremia is accurate and not a contaminate. - Problems/Diagnosis (1) Dehydration, moderate Problem: Resolved (2) Hypotension Problem: Resolved Qualifiers: Hypotension type: unspecified hypotension type Qualified Code(s): I95.9 - Hypotension, unspecified (3) Sepsis Problem: Suspected Qualifiers: Sepsis type: sepsis due to unspecified organism (4) Ulcer of sacral region, stage 3 Problem: Acute (5) Pancreatic cancer Problem: Chronic
[2020-09-03] MEDS: NORMAL SALINE 1,000 ML IV PRN (04:05)
[2020-09-03 06:18] LABS: Mean Cell Volume 93.4 fl (78-100); Mean Corpuscular Hgb Conc 32.1 g/dl (32-36); Mean Platelet Volume 10.7 fl (8-12.5); NRBC# 0.1 k/mm3 (0-1); Neutrophil # 11.1 K/mm3 (1.3-6.0); Neutrophil % 82.9 % (42-75.0); Platelet Count 37 K/mm3 (150-450); Red Blood Count 2.57 M/mm3 (4.2-5.4); Red Cell Distribution Width 22.7 % (11.5-14.0); White Blood Count 13.4 K/mm3 (4.0-10.5)
[2020-09-03 06:31] LABS: Albumin * 1.5 gm/dl (3.4-5.0); Anion Gap 15.3 mmol/L (6.8-13.8); BUN/Creatinine Ratio 47.5 (9.0-21.6); Bilirubin, Total 0.9 mg/dL (0.0-1.1); Ca. Corrected For Albumin 9.1 mg/dL (8.4-10.2); Calcium * 7.4 mg/dL (7.9-10.9); Potassium 3.3 mmol/L (3.4-4.6); Total Protein 4.1 gm/dL (6.2-8.2)
[2020-09-03 06:36] LABS: Hemoglobin 7.7 gm/dL (12.5-16.0)
[2020-09-03] MEDS ORDERED: PROPOFOL VIAL IV ONE (06:44)
[2020-09-03] MEDS ORDERED: fentaNYL CITRATE/PF 50 MCG/ML AMPUL ONE (06:44)
[2020-09-03] MEDS ORDERED: LIDOCAINE HCL 50 ML VIAL ONE (06:44)
--- NOTE | 2020-09-03 06:47 | ANES ---
Anesthesia Pre Procedure Eval Vitals/Labs: Last Vital Signs Temp 36.2 C 09/03/20 06:22 Pulse 105 H 09/03/20 06:22 Resp 19 09/03/20 06:22 BP 104/44 09/03/20 06:22 Pulse Ox 98 09/03/20 06:22 HOME MEDICATIONS Multivitamins [Multivitamin Steven] 1 cap PO DAILY 12/18/16 [Last Taken Unknown] Vit C/E/Zn/Coppr/Lutein/Zeaxan [Preservision Areds 2 Softgel] 1 ea PO BID 12/18/16 [Last Taken Unknown] oeccbm-liipyajq-hpqperc 24,000-76,000-120,000 unit capsule,delayed rel 1 tab PO AC 30 Days #150 cap 08/13/18 [Last Taken Unknown] metoclopramide HCl 5 mg tablet 5 mg PO TID PRN 30 Days #90 tab 08/13/18 [Last Taken Unknown] [place] [employer] 0 .ROUTE .MEDSUPPLY #1 ea 10/13/19 [Last Taken Unknown] Furosemide [Lasix] 40 mg PO DAILY PRN 09/01/20 [Last Taken Unknown] Ondansetron HCl [Zofran] 1 - 2 tab PO Q6H PRN 09/01/20 [Last Taken Unknown] Rivaroxaban [Xarelto] 10 mg PO DAILY 09/01/20 [Last Taken Unknown] Allergies/Adverse Reactions: Allergies Allergy/AdvReac Type Severity Reaction Status Date / Time simvastatin AdvReac Mild MUSCLE Verified 09/01/20 14:05 ACHES - Planned Procedure Planned Procedure: dehydration pancreatic Medication List Reviewed:: Yes Allergies Verified: Yes Medical History (Last Reviewed 09/03/20 @ 06:46 by Yvon Chanel CRNA) History of chemotherapy (Acute) Onset Date: 07/12/18 Chemotherapy: gemcitabine/abraxane 07/12/2018 - 08/26/2018 Pancreatic cancer (Chronic) Onset Date: 06/05/18 Stage: [id number], stage III at diagnosis Mets with liver/Lung Osteopenia (Chronic) Onset Date: Unknown Gastroesophageal reflux (Chronic) Onset Date: Unknown Actinic keratoses (Acute) Onset Date: Unknown Ascites Onset Date: 04/28/19 Goiter Onset Date: Unknown History of CT scan Onset Date: 09/09/18 History of chemoradiation Onset Date: 09/24/18 09/24/2018 - 11/06/2018. Knee pain, left Onset Date: Unknown Rosacea Onset Date: Unknown Thyroid nodule Onset Date: [address] scan Onset Date: 06/14/[address] [facility] chest abdomen pelvis. 1. stable ill-defined mass in the inferior pancreatic head/uncinate process, consistent with biopsy-proven adenocarcinoma. The mass abuts and may invade the proximal third portion of duodenum, abuts and focally narrows the distal SMV, and focally abuts the mid SMA without narrowing. 2. Interval resolution of intrahepatic and extrahepatic bile duct dilation with interval biliary stenting. 3. Nonspecific portacaval and periceliac lymph nodes, stable. 4. stable moderate sized hiatal hernia. 5. no liver metastases. Hospital admission Onset Date: 01/20/19 Admitted to [facility] on 01/20/2019; post-operative wound management, pain control. Discharged home on 01/27/2019. Medicare annual wellness visit, initial Onset Date: Unknown Surgical History (Last Reviewed 09/03/20 @ 06:46 by Yvon Chanel CRNA) History of ERCP Onset Date: 03/21/19 Dr. Bob Marie, [facility]. Enteroscopy, endoscopy, choledochoscopy, and vasiliy e duct stone extraction. History of abdominal paracentesis Onset Date: 04/28/19 History of back surgery Onset Date: ~1984 History of biopsy Onset Date: 06/05/18 [facility]. pancreas History of colonoscopy Onset Date: 12/27/16 History of endoscopic retrograde cholangiopancreatography Onset Date: 10/21/18 Dr. Bob Marie, [facility]. History of whipple procedure Onset Date: 01/20/19 Family History (Last Reviewed 09/03/20 @ 06:46 by Yvon Chanel CRNA) Brother Kidney malignancy Father Heart disease Mother Heart disease CHF (congestive heart failure) Sister at - Family Anesthesia History Family History:: no untoward family reactions to anesthesia, no familial bleeding tendencies, no family history of clotting disorders, no family history of premature - Airway/Neck/Teeth Within Normal Limits:: Yes Neck Exam: full range of motion Mallampatti Score: 2 Thyromental (T-M) distance: > 6 cm Mandibulo Hyoid distance: > 3 cm - Respiratory Respiratory Physical: lungs clear Smoking Status: Never smoker Sleep Apnea currently treated: No Sleep Apnea by current assessment: No - Cardiovascular Tolerate Activity: Poor Heart Sounds: S1 & S2, Regular - Gastrointestinal NPO since: 0 - Anesthesia Assessment and Plan ASA Class: PS, III Anesthesia Type Plan: MAC
[2020-09-03] MEDS ORDERED: BUPIVACAINE HCL/EPINEPHRINE 50 ML VIAL ONE (07:01)
[2020-09-03] MEDS ORDERED: PIPERACILLIN SODIUM/TAZOBACTAM 3.375 GM in DEXTROSE 5 % IN WATER 100 ML IV SCH ×2 (08:30)
--- NOTE | 2020-09-03 08:35 | OR ---
Operative Report - Dictated Report Narrative: OPERATIVE REPORT DATE OF OPERATION: 09/03/2020 PREOPERATIVE DIAGNOSIS: Sepsis, unused buried infusion port POSTOPERATIVE DIAGNOSIS: Same Vomiting with major aspiration event OPERATION: Procedure aborted SURGEON: Rodger Bergman MD ANESTHESIA: Yvon Chanel CRNA INDICATIONS FOR PROCEDURE: The patient is a 75-year-old female with advanced pancreatic cancer admitted with sepsis. Blood cultures show gram-negative rods. She has an unused buried infusion port and is brought for removal FINDINGS: Large volume (1 L) emesis of undigested food with aspiration NARRATIVE OF PROCEDURE: The patient was identified preoperatively the surgical site was identified and prior to the administration of anesthetic a multidisciplinary timeout was observed. As intravenous sedation was being initiated, the patient vomited a large (1 L) volume of undigested food. This was immediately suctioned and due to desaturation, operation for intubation was made. Using the glide scope a 6.0 endotracheal tube was passed successfully with demonstration of good placement by improved saturation. The procedure was aborted, and the patient transferred to the recovery room be placed on a ventilator and to obtain x-rays. Dr. Tirado was immediately proximal to the situation Reviewed and electronically signed
--- NOTE | 2020-09-03 10:31 | DS ---
Transfer Discharge Summary - Diagnosis(s)/Problems (1) Acute respiratory failure with hypoxia Problem: Acute (2) Aspiration pneumonia Problem: Acute (3) Sepsis Problem: Suspected (4) Dehydration, moderate Problem: Resolved (5) Ulcer of sacral region, stage 3 Problem: Acute (6) Pancreatic cancer Problem: Chronic - Course Description of Stay: Yana is a 75 yo female with pancreatic cancer who presented to the [facility] ER with progressive fatigue and weakness for the past week. In the ER she was hypotensive, had elevated lactic acid, and WBC of 20k. Yana reported no focal symptoms to identify an infectious source, however nursing did find a sac ral decubitus ulcer. Yana also has a central port placed in her right anterior chest wall that could also be a source of infection. Blood cultures were taken and she was started on Rocephin 1gram q24hr. Blood cultures ultimately grew serratia marscens. Her WBC was improving from 20k down to 13k today with Rocephin. Wound clinic was consulted for her sacral ulcer. She was afebrile through hospital course. She did have hypotension initially in hospital course but this responded well to fluids and had normalized. She did not require pressers. Due to bacteremia with her central port being a possible source of infection or just potentially seeded with bacteria she was consulted with general surgery to have her port removed. I discussed with her oncology department ([facility] - Dr. Pratt's team). I spoke with clinic nursing who reports Yana had not been recently using her port and was on oral chemotherapy. She was taken this morning to surgery to have her port removed but prior to removing her port she aspirated stomach contents. Anesthesia reports suctioning approximately 350ml of brown stomach contents. She was intubated and chest xray obtained showed right aspiration pneumonia. Anesthesia put her through a trial period to see if she could be extubated. Extubation was attempted but she did not tolerate this and was reintubated. Our ICU is currently being utilized with COVID positive patients and we are unable to manage a ventilator at our facility. I discussed with Dr. Hollis at [facility] who accepted her transfer. She will be transferred via Air from OR to [facility] MICU. She was given a dose of IV zosyn around 0800 today in the OR after the aspiration occurred. Aspiration occurred prior to having her PORT removed. Procedures Performed: see notes below Procedures: 09/03/2020 - Intubation - Results and Findings Results and Findings: Laboratory Results - last 24 hr 09/03/20 09/03/20 06:10 06:10 WBC 13.4 H RBC 2.57 L Hgb 7.7 L* Hct 24.0 L MCV 93.4 MCH 30.0 MCHC 32.1 RDW 22.7 H Plt Count 37 L MPV 10.7 Immature Gran % (Auto) 1.60 H Immature Gran # (Auto) 0.21 H Neutrophils % 82.9 H Lymphocytes % 4.1 L Monocytes % 11.1 H Eosinophils % 0.2 Basophils % 0.1 Nucleated RBC % 0.1 Neutrophils # 11.1 H Lymphocytes # 0.55 L Monocytes # 1.5 H Eosinophils # 0.0 Absolute Basophils 0.0 Sodium 137 Plasma Sodium 138 Potassium 3.3 L Chloride 105 Carbon Dioxide 20.0 L Anion Gap 15.3 H BUN 57 H Creatinine 1.20 Est GFR (Non-Af Amer) 46 L BUN/Creatinine Ratio 47.5 H Random Glucose 156 H Calcium 7.4 L Calcium Adj for Albumin 9.1 Total Bilirubin 0.9 AST 30 ALT 46 Alkaline Phosphatase 249 H Total Protein 4.1 L Albumin 1.5 L - Medications Medications: Active Medications Sodium Chloride (Sodium Chloride 0.9%) 1,000 mls @ 126 mls/hr IV .Q7H57M PRN PRN Reason: HYDRATION Stop: 10/01/20 12:54 Last Admin: 09/03/20 04:05 Dose: 126 mls/hr Documented by: Ceftriaxone Sodium 1,000 mg/ (Dextrose/Water) 100 mls @ 200 mls/hr IV Q24H [facility]; Protocol Stop: 10/02/20 12:01 Last Infusion: 09/02/20 12:15 Dose: Infused Documented by: Piperacillin Sod/Tazobactam (Sod 3.375 gm/ Dextrose/Water) 100 mls @ 25 mls/hr IV Q8H [facility]; Protocol Stop: 10/03/20 08:31 Last Admin: 09/03/20 09:39 Dose: 25 mls/hr Documented by: Metoclopramide HCl (Metoclopramide Hcl 5 Mg Tablet) 5 mg PO TID PRN PRN Reason: NAUSEA/APPETITE Stop: 10/02/20 07:40 Last Admin: 09/02/20 17:50 Dose: 5 mg Documented by: Multivitamins/Folic Acid (Multivitamins 1 Cap Capsule) 1 cap PO DAILY [facility] Stop: 10/02/20 09:01 Last Admin: 09/02/20 08:25 Dose: Not Given Documented by: Vini Thomson 24,000 (Units Capsule) 1 tab PO AC [facility] Stop: 10/02/20 11:01 Last Admin: 09/02/20 17:50 Dose: 1 tab Documented by: Xarelto 10mg 1 dose PO DAILY [facility] Stop: 10/02/20 09:01 Last Admin: 09/02/20 08:25 Dose: 1 dose Documented by: Ondansetron HCl (Ondansetron Hcl 4 Mg Tablet) 4 mg PO Q6H PRN PRN Reason: Nausea Stop: 10/02/20 07:40 Last Admin: 09/02/20 08:25 Dose: 4 mg Documented by: Discontinued Medications Sodium Chloride (Sodium Chloride 0.9%) 1,000 mls @ 999 mls/hr IV .Q1H1M PRN PRN Reason: HYDRATION Stop: 10/01/20 08:48 Last Infusion: 09/01/20 10:37 Dose: Infused Documented by: Ceftriaxone Sodium (Rocephin 1000 Mg Er Piggyback) 1,000 mg in 100 mls @ 200 mls/hr IV ONCE ONE Stop: 09/01/20 10:34 Last Infusion: 09/01/20 11:55 Dose: Infused Documented by: Sodium Chloride (Sodium Chloride 0.9%) 1,000 mls @ 100 mls/hr IV .Q10H PRN PRN Reason: HYDRATION Stop: 10/01/20 11:01 Last Infusion: 09/01/20 12:15 Dose: Infused Documented by: Ceftriaxone Sodium 1,000 mg/ (Dextrose/Water) 100 mls @ 200 mls/hr IV Q24H [facility]; Protocol Stop: 10/01/20 13:01 Last Admin: 09/01/20 17:40 Dose: Not Given Documented by: Sodium Chloride (Sodium Chloride 0.9%) 1,000 mls @ 999 mls/hr IV .Q1H1M ONE Stop: 09/01/20 18:34 Last Infusion: 09/01/20 18:38 Dose: Infused Documented by: Ondansetron HCl (Ondansetron Hcl/Pf 2 Mg/Ml Vial) 4 mg IV ONCE ONE Stop: 09/01/20 08:48 Last Admin: 09/01/20 09:29 Dose: 4 mg Documented by: - Disposition Disposition: Short Term Hospital Inpatient Condition: Serious Discharge Date: 09/03/20 Discharge Time: 10:30
[2020-09-03] MEDS ORDERED: NOREPINEPHRINE BITARTRATE 4 MG in DEXTROSE 5 % IN WATER 500 ML IV PRN ×2 (10:45)
[2020-09-03 11:10] VITALS: BP 80/36
--- NOTE | 2020-09-03 11:12 | ANES ---
Post Anesthesia Discharge - Transfer of Care Transfer of Care handoff given to nurse: Yes - Discharge from PACU Discharge from PACU when meets criteria: Yes - Transfered to [facility]
--- NOTE | 2020-09-03 11:14 | ANES ---
Post Anesthesia Assessment - Vital Signs Vitals: Last Vital Signs Temp 36.5 C 09/03/20 10:20 Pulse 120 H 09/03/20 10:20 Resp 18 09/03/20 10:20 BP 80/36 L 09/03/20 10:20 Pulse Ox 99 09/03/20 10:20 Airway Patency: Maintainable - #6.0 ETT - Mental Status Level Of Consciousness: Drowsy - opens eyes to command with some consistency - Pain Level Pain Score: 0 - none related - N/V Assessment Nausea/Vomiting Presence: Vomiting - continues to have drainage from NG tube. Dehydration:: No
[2020-09-03] MEDS ORDERED: SUCCINYLCHOLINE CHLORIDE 20 MG/ML VIAL ONE (12:22)
== END 2020-09-03 10:45 | disposition short-term general hospital (02) | DRG 871 ==
LOC: ER 08:12 → MS 12:47
PROVIDERS: ADMIT Family Medicine; ATTEND Family Medicine
DX: Z53.8 Procedure and treatment not carried out for other reasons; A41.53 Sepsis due to Serratia; J96.01 Acute respiratory failure with hypoxia; J69.0 Pneumonitis due to inhalation of food and vomit; I95.9 Hypotension, unspecified; E86.0 Dehydration; L89.153 Pressure ulcer of sacral region, stage 3; C25.9 Malignant neoplasm of pancreas, unspecified; R65.20 Severe sepsis without septic shock